=== PATIENT | male | born 1990 | race Caucasian/White ===

== ENCOUNTER 2024-07-24 10:34 | Outpatient (CLI) | payer OTHER, SELFPAY ==
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
--- OUTSIDE RECORDS SUMMARY | 2024-07-24 11:52 | XMS_ITS | Encounter Summary ---
Author Organization [facility] Address [address] [place] [address] Care Team Providers Care Manager Mining Name Role Phone Veronique Jenkins MD Unavailable [phone] Bety Hansen MD Primary Care Provider [phone] Bety Hansen MD Primary Care Provider [phone] Encounter Details Date Type Department Care Team (Late st Contact Info) Description 02/14/2009 [facility] Outpatient Visit [address] [address] Davide Goetz MD [address] [place] [address] [address] [place] [address] Social History Tobacco Use Types Packs/Day Years Used Date Smoking Tobacco: Never Assessed Sex and Gender Information Value Date Recorded Sex Assigned at Not on file Gender Identity Not on file Sexual Orientation Not on file documented as of this encounter Plan of Treatment Not on file documented as of this encounter Visit Diagnoses Not on filedocumented in this encounter Care Teams Manager Mining Relationship Specialty Start Date End Date Veronique Jenkins MD PCP - Pediatrics 04/21/09 Bety Hansen MD [address] [facility] [place] [phone] PCP - General 03/10/10 07/23/18 Bety Hansen MD [address] [facility] [place] [phone] PCP - General 07/28/18 documented as of this encounter
--- OUTSIDE RECORDS SUMMARY | 2024-07-24 11:52 | XMS_ITS | Clinical Summary ---
Author Organization [facility] Address [address] [place] [address] Care Team Providers Care Dragger Out Name Role Phone None, Provider MD Primary Care Provider Unavaila ble Allergies Active Allergy Reactions Criticality Noted Date Comments Morphine Other (see comment) Medium 07/23/2018 Aggression. Paroxetine Hives 07/23/2018 Immunizations Name Administration Dates Next Due Tdap (Boostrix) 07/24/2018 Social History Tobacco Use Types Packs/Day Years Used Date Smoking Tobacco: Former Cigarettes Q uit: 07/23/2012 Smokeless Tobacco: Never Alcohol Use Standard Drinks/Week Comments No 0 (1 standard drink = 0.6 oz pur e alcohol) socially AUDIT-C Answer Date Recorded Frequency of Alcohol Consumption Never 07/23/2018 Average Number of Drinks Not on file Frequency of Binge Drinking Not on file 10/2018 Sex and Gender Information Value Date Recorded Sex Assigned at Not on file Legal Sex Male 9:41 PM CDT Gender Identity Not on file Sexual Orientation Not on file Last Filed Vital Signs Vital Sign Reading Time Taken Comments Blood Pressure 144/84 07/24/2018 12:49 AM CDT Pulse 87 07/24/2018 12:49 AM CDT Temperature 37.1 C (98.7 F) 07/23/2018 10:18 PM CDT Respiratory Rate 18 07/24/2018 12:4 9 AM CDT Oxygen Saturation 99% 07/24/2018 12: 49 AM CDT Inhaled Oxygen Concentration - - Weight 108.1 kg (238 lb 6.4 oz) 019 10:18 PM CDT Height 177.8 cm (5' 10 ) 07/23/2018 10: 18 PM CDT Body Mass Index 34.21 07/23/2018 10:18 PM CDT Plan of Treatment Health Maintenance Due Date Last Done Comments Annual Physical 08/26/1995 Hepatitis C 2010 COVID-19 Vaccine (1 - 2023-2 5 season) 2023 DTaP, Tdap and Td Vaccines ( 3 - Td or Tdap) 07/24/2028 07/24/2018, 10/10/2006 Hepatitis B Vaccines Completed 03/02/1993, 1992, 1992 HPV Vaccines Aged Out No longer eligi ble based on patient's age to complete this topic Meningococcal B Vaccine Aged Out No l onger eligible based on patient's age to complete this topic Meningococcal Vaccine Aged Out No lewis vijaya eligible based on patient's age to complete this topic Pneumococcal Vaccine: Pediatrics (0 to 5 Years) and At-Risk Patients (6 to 64 Years) Aged Out No longer eligible b ased on patient's age to complete this topic RSV Immunizations Under 20 Months Aged Out No longer eligible b ased on patient's age to complete this topic Insurance [employer] Care Teams Dragger Out Relationship Specialty Start Date End Date None, Provider, PCP - General 07/23/18
[2024-07-24 19:05] LABS: Basophils Absolute Auto 0.1 K/mm3 (0.0-0.1); Basophils Percent Auto 0.7 % (0.2-1.2); Eosinophils Absolute Auto 0.1 K/mm3 (0-0.3); Eosinophils Percent Auto 1.6 % (0-4.4); Hematocrit 50.5 % (42.0-52.0); Hemoglobin 15.6 g/dL (14.0-18.0); Immature Granulocyte Absolute 0.03 K/mm3 (0.00-0.031); Immature Granulocyte Percent A 0.4 % (0-0.5); Lymphocytes Absolute Auto 1.68 K/mm3 (0.9-3.2); Lymphocytes Percent Auto 20.4 % (18.3-44.2); Mean Corpuscular HGB Conc 30.9 g/dl (32-36); Mean Corpuscular Hemoglobin 29.5 pg (26-34); Mean Corpuscular Volume 95.6 fl (80-100); Mean Platelet Volume 10.3 fl (7.4-10.4); Monocytes Absolute Auto 0.6 K/mm3 (0.1-0.6); Monocytes Percent Auto 6.8 % (2.6-8.5); Neutrophils Absolute Auto 5.8 K/mm3 (1.3-6.7); Neutrophils Percent Auto 70.1 % (45.5-73.1); Platelet Count Result 272 k/mm3 (150-375); Red Blood Count 5.28 M/mm3 (4.6-6.20); Red Cell Distribution Width 12.5 % (11.5-14.5); White Blood Count 8.2 K/mm3 (4.5-10.0)
[2024-07-24 19:51] LABS: Rheumatoid Factor < 12.0 IU/ML (<12)
[2024-07-24 20:10] LABS: Alanine Aminotransferase 34 U/L (6-50); Albumin Level 4.7 g/dL (3.5-5.1); Alkaline Phosphatase 75 U/L (38-126); Anion Gap 9 mmol/L (4-12); Aspartate Amino Transferase 70 U/L (17-59); Bilirubin,Total 0.5 mg/dL (0.2-1.3); Blood Urea Nitrogen 12 mg/dL (9-20); Calcium 9.6 mg/dL (8.4-10.2); Carbon Dioxide 30 mmol/L (22-30); Chloride 103 mmol/L (98-107); Cholesterol 144 mg/dL (0-200); Estimated Glomerular Filt Rate > 60; Glucose 75 mg/dL (65-110); HDL Direct 46 mg/dL; Potassium 4.2 mmol/L (3.4-5.0); Sodium 142 mmol/L (137-145); Triglycerides 100 mg/dL (<150)
[2024-07-24 20:17] LABS: Erythrocyte Sedimentation Rate 2 mm/hr (0-20)
[2024-07-24 20:21] LABS: LDL Cholesterol Direct 72 mg/dL
[2024-07-24 20:42] LABS: Hemoglobin A1C 5.3 % (<5.7)
[2024-07-26 13:13] LABS: ANA Cascade Screen NEGATIVE (NEGATIVE)
== END 2024-07-24 10:35 | disposition home or self-care (01) ==
PROVIDERS: PCP Nurse Practitioner Adult Health; Visit Provider Nurse Practitioner Adult Health
DX: M25.50 Pain in unspecified joint (principal); Z13.9 Encounter for screening, unspecified; Z83.3 Family history of diabetes mellitus
CPT/HCPCS: 36415; 80053; 80061; 82607; 83036; 83516; 84443; 85025; 85652; 86038; 86225; 86235; 86430

== ENCOUNTER 2024-08-13 10:57 | Outpatient (CLI) | payer OTHER, SELFPAY ==
--- NOTE | ~2024-08-13 | US_ITS ---
EXAMINATION: US scrotum doppler DATE: 08/13/2024 11:20 INDICATION: N50.89 - Other specified disorders of the male genital or... . TECHNIQUE: Grayscale and Doppler ultrasound images of the testes were obtained. COMPARISON: None. FINDINGS: The right testis measures 4.5 x 2.7 x 3.8 cm. The left testis measures 4.5 x 2.6 x 3.9 cm. No testicular mass. There is normal vascular flow to both testes. The right epididymis is normal with normal vascular flow. The left epididymis is normal with normal vascular flow. Small bilateral hydro baron. No varicocele. IMPRESSION: Small bilateral hydroceles, otherwise normal scrotal ultrasound findings. Reviewed, dictated and finalized at location K.
--- NOTE | ~2024-08-13 | MMUS_ITS ---
EXAMINATION: MM diagnostic tori LT w celeste, US breast LT limited HISTORY: Left breast lump TECHNIQUE: 3-D tomosynthesis images of the left breast were performed and synthetic 2-D images were g enerated. CAD analysis was submitted and interpreted. High resolution limited left breast ultrasound was performed. COMPARISON: None BREAST PARENCHYMAL COMPOSITION:Not Dense. The breasts are almost entirely fatty FINDINGS: MAMMOGRAPHIC FINDINGS: No suspicious mass lesion or distortion are evident. No suspicious microvascular calcifications. ULTRASOUND: No sonographic abnormality seen at the area scanned in the 2:00 position periareolar region. IMPRESSION: No mammographic or sonographic evidence for malignancy. No imaging correlate for the area of clinica l concern in the left breast. BI-RADS Category 1: Negative Reviewed, dictated and finalized at location M. IMPRESSION: No mammographic or sonographic evidence for malignancy. No imaging correlate f or the area of clinical concern in the left breast. BI-RADS Category 1: Negative
== END 2024-08-13 10:58 | disposition home or self-care (01) ==
LOC: MICIMG 10:57
PROVIDERS: PCP Nurse Practitioner Adult Health; Visit Provider Nurse Practitioner Adult Health
DX: N63.21 Unspecified lump in the left breast, upper outer quadrant (principal); N50.89 Other specified disorders of the male genital organs; N43.3 Hydrocele, unspecified
CPT/HCPCS: 76642; 76870; 77061; 77065; 93976; G0279